=== PATIENT | female | born 1980 | race Caucasian/White ===

== ENCOUNTER 2016-10-20 14:11 | Emergency (ER) | payer OTHER ==
--- NOTE | ~2016-10-20 | CT52 ---
[facility] A Service of [facility] RADIOLOGY TEXT RESULTS PATIENT: DOM CASTILLO LOCATION: [facility] : 82 UNIT #: [id number] AGE: [address]: Kelsey Acosta SEX: F ORDER DR: [id number] [facility] [address] [place], [place] [address] [id number] E MR#: [id number] Acc #: [id number] NAME: DOM CASTILLO : 1980 SEX: F STUDY DATE/TIME: 10/20/2016 14:36 UNIT: [facility] ROOM: STUDY DESCRIPTION: CT Cervical Spine Wo Cont Attending Physician: Kelsey Acosta Pa-C Ordering Physician: Kelsey Acosta Pa-C Primary Care Physician: Rakesh Banuelos M.D. MEDICAL IMAGING REPORT This report is preliminary unless electronic signature is present EXAM CT of the cervical spine DATE OF EXAMINATION 10/20/2016 COMPARISON STUDIES Comparison to plain radiographs of 10/13/2016 HISTORY Right arm pain for 1 week. Right-sided neck pain for 1 month with numbness and tingling. TECHNIQUE Transaxial imaging of the cervical spine was performed and compared to the patient's plain radiographs which are dated 10/13/2016. This CT exam was performed with one or more of the following radiation dose reduction techniques: automatic exposure control, adjustment of mA and/or kV according to patient size, and iterative reconstruction. FINDINGS Cervical alignment is normal. There is disc space narrowing at C5-6 and marginal spur formation at C5-6 and C6-7 extending posteriorly. At C5-6 there is a broad-based posterior disc osteophyte complex. There is bony right-sided outlet foraminal stenosis. At C6-7 there is again a posterior disc osteophyte complex. It is eccentric to the right. It does not however appear to cause any significant nerve root compression. It does efface the thecal sac anteriorly. There is facet disease at C7-T1. The remaining cervical levels are normal. CONCLUSION [facility] A Service of [facility] RADIOLOGY TEXT RESULTS PATIENT: DOM CASTILLO LOCATION: [facility] : 82 UNIT #: [id number] AGE: [address]: Kelsey Acosta SEX: F ORDER DR: 1. Degenerative disc disease at C5-6 and C6-7 with broad-based disc osteophyte complexes at these levels. Right-sided outlet foraminal stenosis at C5-6. If the patient has radicular symptoms, consider imaging by MRI as an outpatient. 2. Facet arthropathy at C7-T1. Dictated by... Mina Sapp M.D. THIS IS AN ELECTRONICALLY VERIFIED REPORT Mina Sapp M.D. at 10/21/2016 10:56 AM ANGEL/adrienne TD: 10/20/2016 16:43 JOB #: [id number] MEDICAL IMAGING REPORT Page 1 of 1 COPY
[~2016-10-20 14:11] MED LIST: ADVIL200 M1 PO; KEFLEX500 M1 PO
== END 2016-10-20 16:35 | disposition home or self-care (01) ==
LOC: CFTX 14:11
DX: M54.12 Radiculopathy, cervical region (principal); Z90.49 Acquired absence of other specified parts of digestive tract; Z88.1 Allergy status to other antibiotic agents
CPT/HCPCS: 72125; 99284; J1885; J2360

== ENCOUNTER → 2016-10-26 | Outpatient (CLI) | payer OTHER ==
--- NOTE | ~2016-10-26 | MR32 ---
[facility] A Service of [facility] RADIOLOGY TEXT RESULTS PATIENT: DOM CASTILLO LOCATION: [facility] : 82 UNIT #: [id number] AGE: [address]: Juan Carlos aGrcia MD SEX: F ORDER DR: [id number] [address] [address] [id number] O MR#: [id number] Acc #: [id number] NAME: DOM CASTILLO : 1980 SEX: F STUDY DATE/TIME: 10/26/2016 15:01 UNIT: [facility] ROOM: STUDY DESCRIPTION: MR Cervical Wo Contrast Attending Physician: Juan Carlos Garcia M.D. Referring Physician: Juan Carlos Garcia M.D. Ordering Physician: Juan Carlos Garcia M.D. Primary Care Physician: Juan Carlos Garcia M.D. MRI CENTER REPORT This report is preliminary unless electronic signature is present. EXAM MRI of the cervical spine without contrast dated 10/26/2016. COMPARISON CT cervical spine without contrast dated 10/20/2016. HISTORY Severe neck pain with right upper extremity pain for about a month. FINDINGS Multisequence, multiplanar imaging of the cervical spine was obtained without contrast. There is loss of normal cervical curvature. Vertebral body heights and alignment are preserved. Degenerative disc disease is at multiple levels, worse at C6-7 followed by C5-6. Cord is flattened and displaced posteriorly at these 2 levels without any obvious cord signal change yet. Imaged posterior fossa and craniovertebral junction are unremarkable. Pre and paravertebral soft tissues do not demonstrate any significant abnormality. C2-3: Mild disc bulge with no canal stenosis or neural foraminal narrowing. C3-4: Concentric disc bulge with small central protrusion. It causes mild mass effect on the adjacent thecal sac. No neural foraminal narrowing. C4-5: Mild disc bulge with suspicious prominent left uncinate spur without any significant neural foraminal narrowing or canal stenosis. C5-6: Moderate disc osteophyte complex with superimposed mueya-au-qjpa subarticular moderate broad-based protrusion. There is spfujbct-xd-mpmfxd canal stenosis. Bilateral uncinate spurs are noted with moderate to severe right and inferior left neural foraminal narrowing. The superior [facility]. [facility] A Service of [facility] RADIOLOGY TEXT RESULTS PATIENT: DOM CASTILLO LOCATION: [facility] : 82 UNIT #: [id number] AGE: [address]: Juan Carlos Garcia MD SEX: F ORDER DR: aspect of the left neural foramen is widely patent. Moderate to severe canal stenosis. C6-7: Moderate disc bulge is seen with superimposed central to right foraminal moderate broad-based protrusion with an extruded component in the right subarticular region. It measures about 1.1 x 0.8 x 1.3 cm. There is some displacement of the cord posteriorly at this level with fxiasjrd-up-kldlkc canal stenosis and right severe neural foraminal narrowing. Correlate with right C7 radiculopathy. C7-T1: Disc bulge with suspicious left uncinate spur and protrusion. Mild bilateral facet changes are noted with moderate left neural foraminal narrowing and borderline size to mild canal stenosis in the transverse dimension. IMPRESSION 1. Degenerative changes are noted at multiple levels, worse at C6-7 followed by C5-6. 2. There is a central to right foraminal broad-based protrusion at C6-7 with an extruded component in the right subarticular region measuring about 1.3 cm in height. It causes about qvdoxfcb-db-zxhpeu canal stenosis and likely impinges on the exiting right C7 nerve root with severe right neural foraminal narrowing. 3. No obvious cord signal change is noted yet despite flattening at the level of C6-7 and C5-6. Dictated by... Naheed Solorio M.D. THIS IS AN ELECTRONICALLY VERIFIED REPORT Naheed Solorio M.D. at 10/27/2016 2:58 PM CPR/tmw TD: 10/26/2016 17:26 JOB #: [id number] MRI CENTER REPORT Page 1 of 1
== END | disposition home or self-care (01) ==
LOC: SMRI 14:14
DX: M54.2 Cervicalgia (principal); R93.7 Abnormal findings on diagnostic imaging of other parts of musculoskeletal system; M50.223 Other cervical disc displacement at C6-C7 level; M47.812 Spondylosis without myelopathy or radiculopathy, cervical region; M48.02 Spinal stenosis, cervical region
CPT/HCPCS: 72141

== ENCOUNTER 2016-10-27 17:54 | Emergency (ER) | payer OTHER | END 2016-10-27 18:08 | disposition home or self-care (01) | LOC: SED 17:54 | DX: M54.12 Radiculopathy, cervical region (principal); R11.0 Nausea; Z90.49 Acquired absence of other specified parts of digestive tract; Z79.899 Other long term (current) drug therapy | CPT/HCPCS: 99283 ==

== ENCOUNTER → 2016-12-19 | Outpatient (CLI) | payer OTHER ==
--- NOTE | ~2016-12-19 | CR58 ---
[facility]. [facility] A Service of [facility] RADIOLOGY TEXT RESULTS PATIENT: DOM CASTILLO LOCATION: [facility] : 82 UNIT #: [id number] AGE: [address]: CONNOR FISHER APRN SEX: F ORDER DR: [id number] [place] [id number] O MR#: [id number] Acc #: [id number] NAME: DOM CASTILLO : 1980 SEX: F STUDY DATE/TIME: 12/19/2016 13:33 UNIT: [facility] ROOM: STUDY DESCRIPTION: CR Cervical Spine 2 or 3 Views Attending Physician: Connor Fisher A.P.R.N. Referring Physician: Connor Fisher A.P.R.N. Ordering Physician: Connor Fisher A.P.R.N. Primary Care Physician: Juan Carlos Garcia M.D. MEDICAL IMAGING REPORT This report is preliminary unless electronic signature is present. EXAM Cervical spine 12/19/2016 HISTORY 36-year-old female postop cervical fusion 11/14/2016. Persistent right arm pain and right hand numbness and tingling since surgery COMPARISON Cervical spine 11/14/2016 FINDINGS 4 views of the cervical spine demonstrate postsurgical changes from anterior cervical fusion extending from C5-C7. No evidence of hardware failure or loosening. Vertebral body heights and alignment are normally maintained. No acute fracture or subluxation. Disc spaces are within normal limits. Cervicothoracic junction is unremarkable. Atlantoaxial relationship normal. Prevertebral soft tissues are normal. IMPRESSION Stable postoperative changes from ACDF C5-C7. Dictated by... Man Gtz M.D. THIS IS AN ELECTRONICALLY VERIFIED REPORT Man Gtz M.D. at 12/20/2016 3:24 PM Kaitlin TD: 12/20/2016 08:19 JOB #: [id number] MEDICAL IMAGING REPORT Page 1 of 1
== END | disposition home or self-care (01) ==
LOC: SRAD 13:24
DX: M48.02 Spinal stenosis, cervical region (principal); F41.9 Anxiety disorder, unspecified; J30.9 Allergic rhinitis, unspecified; Z98.1 Arthrodesis status
CPT/HCPCS: 72040